=== PATIENT | female | born 1970 | race Caucasian/White ===

== ENCOUNTER 2018-07-24 13:14 | Emergency (ER) | payer OTHER ==
[~2018-07-24] VITALS: Ht 177.8 cm; Wt 108.9 kg
[2018-07-24] MEDS ORDERED: DICLOFENAC SODI75 MG PO (13:29)
[2018-07-24] MEDS ORDERED: OMEPRAZOLE40 MG PO (13:29)
[2018-07-24] MEDS ORDERED: MEDROLDOSEPACK PO (14:59)
[2018-07-24] MEDS ORDERED: NABUMETONE 750750 M1 PO (14:59)
[2018-07-24] MEDS ORDERED: ROBAXIN 750 MG750 M1 PO (14:59)
[2018-07-24] MEDS ORDERED: NORCO 5-325 TA1 EACH PO (14:59)
[2018-07-24 15:30] VITALS: BP 105/74
== END 2018-07-24 15:32 | disposition home or self-care (01) ==
LOC: M.ERS 13:14
DX: M48.061 Spinal stenosis, lumbar region without neurogenic claudication (principal); M51.27 Other intervertebral disc displacement, lumbosacral region; Z98.890 Other specified postprocedural states

== ENCOUNTER → 2018-08-25 | Outpatient (CLI) | payer OTHER ==
[~2018-08-25] MED LIST: DICLOFENAC SODI75 MG PO; MEDROLDOSEPACK PO; NABUMETONE 750750 M1 PO; NORCO 5-325 TA1 EACH PO; OMEPRAZOLE40 MG PO; ROBAXIN 750 MG750 M1 PO
--- NOTE | ~2018-08-25 | PAINCON ---
[address] [address] PAIN MANAGEMENT CONSULTATION Name: SALYEFRIAntonio CARDONA Room: [facility] Howe#: [id number] Admission: 08/25/18 Attend Phys: Jennifer Pino MD Discharge: Date of : 72 Report #: [id number] THIS REPORT FOR: //name// CC: Gaby Pino DATE OF SERVICE: 08/25/2018 CHIEF COMPLAINT: Low back pain, history of sciatica. HISTORY: The patient is a 47-year-old female who has been referred to the Pain Clinic for evaluation. The patient reports injuring her back in July. She has a history of chronic back pain and sciatica. She has been told that she has some bulging disk at L5. She had received epidural steroid injections in the past. Overall, she has been doing reasonably well for the last few years. In July, she was lifting 33 pound item. She felt a pop in her lower back. She began to have pain radiating down into her left SI joint and down the posterior portion of her thigh. Pain has been exacerbated by prolonged sitting, prolonged standing, prolonged lying in one position as well as with movement. Denies any problem with her bowel or bladder function. The patient is still working. He has been off for the holidays. He has used diclofenac and ibuprofen. The patient has used muscle relaxants, steroids and feels that these modalities have been helpful. Notes that her pain is worse when she is carrying weight in her or him. Has tried heat, cold and rest to help with her problem. Rates her pain as a 6/10 at this juncture. Described as continuous, rhythmic, burning, shooting, cramping, and pulling. ALLERGIES: MORPHINE, SKELAXIN. CURRENT MEDICATIONS: Omeprazole 40 mg, methylprednisone 4 mg, diclofenac 75 mg b.i.d. PAST MEDICAL HISTORY: Generally good health, anxiety state, depressive disorder, extrinsic asthma, esophageal reflux, lumbar radiculopathy, L5-S1 dermatomal distribution involving the right leg. PAST SURGICAL HISTORY: , breast augmentation, tubal ligation, x 2. SOCIAL HISTORY: She works in construction. She is working at this juncture. She has been off for the last 2 weeks because of vacation. Has been using family medical leave. REVIEW OF SYSTEMS: Generally good health, fatigue and weakness, wears glasses/contact lenses, wakens at night to urinate, incontinence, dribbling back pain, weakness of muscles and joint, joint stiffness, [place] [address] PAIN MANAGEMENT CONSULTATION Name: YEFRI HUANG Room: [facility]#: [id number] Admission: 08/25/18 Attend Phys: Jennifer Pino MD Discharge: Date of : 72 Report #: [id number] PERSONAL HISTORY: Nicotine dependence. CT of the lumbar spine without contrast dated 07/24/2018. Impression: No acute modality is identified in the lumbar spine. Multilevel lumbar facet joint arthropathy, next, L5-S1 central spinal stenosis secondary to a combination of degenerative bulging disk and facet joint and ligamentum flavum hypertrophy. PAIN CLINIC ASSESSMENT/PQRS: 1. The patient is not being treated for rheumatoid arthritis. The patient has some arthritic changes in her low back. 2. Height 5 feet 10 inches, weight 238 pounds, BMI is 34.2. 3. Vital signs: Blood pressure 135/70, heart rate 87, respiratory rate 16, room air saturation 98%, and temperature 98.2. Pain intensity 10/16. 4. Fall history: The patient has not fallen in the last 3 months. 5. Blood thinner. The patient is not on a blood thinning medication. 6. Hypertension. The patient is not being treated for hypertension. 7. Opioids greater than 6 weeks. The patient is not on her regular opioid regimen. 8. Risk assessment tool, low for opioid use. 9. Functional assessment tool. 10. Recreational drug use. The patient denies use of recreational drugs. 11. Tobacco: The patient has never smoked. 12. Alcohol: The patient denies regular use of alcoholic beverages. PHYSICAL EXAMINATION: GENERAL: The patient is a well-developed, well-nourished white female. Appears her stated age. She is alert and oriented x 3. Her affect is appropriate. Speech is fluent. HEENT: Normocephalic, atraumatic. Extraocular eye muscles intact. Sclerae nonicteric. Mucous membranes are moist. NECK: Without adenopathy or JVD. The patient has some pain and discomfort in her right shoulder area. Muscle strength in the upper extremities, judged to be 5/5 for the major muscle groups. Deep tendon reflexes are +2 at the biceps bilaterally, trace at the brachioradialis, difficult to assess in the triceps. Forward bending to about 90 degrees causes pain and discomfort. Left and right lateral bending cause some increased pain and discomfort on the left side. Left and right lateral rotation were not very problematic. The patient has pain in the lumbar area with pain as radiating down into the right foot involving the toes. Left leg is positive straight leg raise on the left side. IMPRESSION: Lumbar radiculopathy, L5-S1 dermatomal distribution involving the right leg. RECOMMENDATIONS: We discussed treatment options with the patient. Risks and benefits of an epidural steroid injection [place] [address] PAIN MANAGEMENT CONSULTATION Name: YEFRI HUANG Room: [facility]#: [id number] Admission: 08/25/18 Attend Phys: Jennifer Pino MD Discharge: Date of : 72 Report #: [id number] complications of the procedure, which could include infection, worsening of pain, no improvement in pain, numbness and tingling with nerve trauma or paralysis were discussed. The patient will return. She will then undergo an epidural steroid injection. A script for hydrocodone 5/325 one p.o. q. 4 hours have been written. The patient will also try or continue with Robaxin 750 mg q.i.d. and had seen with it. By: [id number]. Cristobal Pino MD /nt
== END ==
LOC: M.PC 12:40
DX: M54.16 Radiculopathy, lumbar region (principal); Z87.39 Personal history of other diseases of the musculoskeletal system and connective tissue

== ENCOUNTER → 2018-08-30 | Outpatient (CLI) | payer OTHER ==
--- NOTE | ~2018-08-30 | PAINCON ---
[address] [address] PAIN MANAGEMENT CONSULTATION Name: YEFRI HUANG BRENDAN Room: [facility] Carley#: [id number] Admission: 08/30/18 Attend Phys: Jennifer Pino MD Discharge: Date of : 72 Report #: [id number] THIS REPORT FOR: //name// CC: Gaby Pino DATE OF SERVICE: 08/30/2018 CHIEF COMPLAINT: Here for an injection. FOLLOWUP HISTORY: The patient is a 47-year-old female who has been seen in the pain clinic. As you recall, she reports pain in her back since an injury, which was sustained in July. She does have a history of chronic back pain and has had some problems with sciatica. She was told that she has a bulging disk at L5. She has received epidural steroid injections in the past and gleaned benefits from these. She remembered lifting a pound July. She felt a popping sensation in her low back. She has begun to have pain, has been radiating down into the low back area. Has had some discomfort in the SI joint area. Notes that the pain is exacerbated with prolonged sitting, prolonged standing, prolonged lying down or standing in one position. She denies any bowel or bladder dysfunction. She has used diclofenac and ibuprofen. Has used muscle relaxers. ALLERGIES: MORPHINE AND SKELAXIN. CURRENT MEDICATIONS: Omeprazole 40 mg, methylprednisolone 4 mg, and diclofenac 75 mg b.i.d. PAIN CLINIC ASSESSMENT/PQRS: 1. The patient is not being treated for rheumatoid arthritis or osteoarthritis. 2. Height 5 feet 10 inches, weight 245 pounds, BMI is 35. 3. Vital Signs: Blood pressure 144/66, heart rate 77, respiratory rate 16, room air saturation is 97%, temperature 98.5. 4. Pain intensity 10. 5. Fall history: The patient has not fallen in the last 3 months. 6. Blood thinner. The patient is not on a blood thinning medication. 7. Hypertension. The patient has not been treated for hypertension. 8. Opioid greater than 6 weeks. The patient is not on a regular opioid regimen. 9. Risk assessment too low for opioid use. 10. Functional assessment tool. 11. Recreational drug use. The patient denies use of recreational drugs. 12. Tobacco: The patient has never smoked. 13. Alcohol: The patient denies regular use of alcoholic beverages. PHYSICAL EXAMINATION: [place] [address] PAIN MANAGEMENT CONSULTATION Name: YEFRI HUANG Room: [facility]#: [id number] Admission: 08/30/18 Attend Phys: Jennifer Pino MD Discharge: Date of : 72 Report #: [id number] GENERAL: The patient is a well-developed, well-nourished white female. She appears her stated age. She is alert and oriented x 3. Her affect is appropriate. Speech is fluent. HEENT: Normocephalic, atraumatic. Extraocular eye muscles intact. Sclerae nonicteric. Mucous membranes are moist. NECK: Without adenopathy or JVD. MUSCULOSKELETAL: Without significant scoliosis, kyphosis or lordosis. The patient has some pain and discomfort in the lower portion of her back, which is near the left as well as the right paraspinous area near the groove posterior superior iliac spine areas. The patient has had some pain and discomfort that is radiating down into her legs. Today's leg pain in the sciatic area is not as problematic. Palpation of the trigger points in the low back reproduce a large proportion of the patient's discomfort. IMPRESSION: 1. Myofascial pain, L4-L5 paraspinous areas on the left as well as the right. 2. History of lumbar radiculopathy. RECOMMENDATIONS: We discussed treatment options with the patient. The patient's pain primarily is that of myofascial. Forward bending, left and right lateral rotation, left and right lateral bending all increased pain and discomfort in the low back area. The patient is sitting position on the left as well as the right posterior superior iliac spine areas are pressed. The patient states that this is the pain that is most problematic. She elects to proceed with a trigger point injection to the trigger points. Risks and benefits of the procedure were discussed. They include, but are not limited to infection, worsening pain, no improvement in pain, bleeding, nerve damage. The patient elects to proceed. PROCEDURE NOTE: The patient was taken to the procedure area. She was assisted in getting on the examination table. She sat perpendicular to the table. Chair was placed under her feet for support. The patient lean forward as though she were going to tie her shoes. Palpation in the left as well as the right posterior superior iliac spine area causes the patient to recoil and complained of pain in these trigger point areas. The areas were then sterilely prepped with a chlorhexidine solution and allowed to dry. A 25-gauge needle was placed on the left side. After appropriate injection with 0.25% bupivacaine. The trigger point was noted. Aspiration was negative. A total of 80 mg Depo-Medrol and 8 mL of 0.5% bupivacaine was injected. The patient tolerated that trigger point #1 well. The second trigger point on the right side was identified. A 25-gauge needle was then advanced into the area of the posterior superior iliac spine near the gluteus kaley and latissimus dorsi as we did on the contralateral side. Aspiration was negative. Total of 8 mL of 0.5% bupivacaine and 80 mg Depo-Medrol was injected. The patient's pain was recorded as 3 at the time of discharge. There were no complications. She will follow up in the future as needed. A script for now, Nabumetone 750 mg 1 p[address]i.d., [place] [address] PAIN MANAGEMENT CONSULTATION Name: YEFRI HUANG Room: [facility]#: [id number] Admission: 08/30/18 Attend Phys: Jennifer Pino MD Discharge: Date of : 72 Report #: [id number] hydrocodone 5/325 one p.o. total of 12 tablets were released. The patient will call us if she has any concerns. We would like to thank you for letting us participate in her care. We hope she continues to improve. By: [id number]. Cristobal Pino MD /nt
== END | disposition home or self-care (01) ==
LOC: M.PC 04:15
DX: M79.18 Myalgia, other site (principal); F32.9 Major depressive disorder, single episode, unspecified; F41.9 Anxiety disorder, unspecified; K21.9 Gastro-esophageal reflux disease without esophagitis; Z98.51 Tubal ligation status; Z98.890 Other specified postprocedural states; Z79.899 Other long term (current) drug therapy; Z88.8 Allergy status to other drugs, medicaments and biological substances; G89.29 Other chronic pain